=== PATIENT | male | born 1980 | race African-American/Black ===

== ENCOUNTER 2017-04-18 23:23 | Emergency (ER) | payer SELFPAY ==
[~2017-04-18] VITALS: Ht 175.3 cm; Wt 103.9 kg
--- NOTE | 2017-04-18 23:23 | NUR ---
PT AMBULATORY TO ER BED 08. 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 PT ALSO C/O N/V X TODAY. GOWNED AND PLACED ON MONITOR. STABLE VITALS. SALVADOR CUADRA.
--- NOTE | 2017-04-19 00:02 | NUR ---
DR MARR AT BEDSIDE FOR EVAL.
[2017-04-19] MEDS ORDERED: LORAZEPAM INJ 2 MG/ML VIAL IM ONE (00:30)
--- NOTE | 2017-04-19 00:30 | NUR ---
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
--- NOTE | 2017-04-19 00:30 | NUR ---
DIRECTOR TRANSPORTATION AT BEDSIDE FOR BLOOD DRAW.
[2017-04-19] MEDS ORDERED: LORAZEPAM 1 MG TABLET ONE (00:36)
[2017-04-19] MEDS ORDERED: LORAZEPAM INJ 2 MG/ML VIAL ONE (00:38)
[2017-04-19 00:41] LABS: BASOPHILS # (AUTO) 0.1 /CMM (0.0-0.2); BASOPHILS % (AUTO) 0.7 % (0.0-2.0); EOSINOPHILS # (AUTO) 0.1 /CMM (0.0-0.7); EOSINOPHILS % (AUTO) 0.6 % (0.0-6.0); HEMATOCRIT 38 % (39-51); HEMOGLOBIN 12.3 g/dL (13.5-17.5); LYMPHOCYTES # (AUTO) 1.8 /CMM (0.8-4.8); LYMPHOCYTES % (AUTO) 22.4 % (20.0-44.0); MEAN CORPUSCULAR HEMOGLOBIN 25 PG (26.0-33.0); MEAN CORPUSCULAR HGB CONC 32 g/dl (31.0-36.0); MEAN CORPUSCULAR VOLUME 79 fL (80-96); MONOCYTES # (AUTO) 0.7 /CMM (0.1-1.30); MONOCYTES % (AUTO) 8.5 % (2.0-12.0); NEUTROPHILS # (AUTO) 5.4 /CMM (1.8-8.9); NEUTROPHILS % (AUTO) 67.8 % (43.0-81.0); PLATELET COUNT (AUTO) 513 /CMM (150-450); RDW COEFFICIENT OF VARIATION 14.5 (11.5-15.0); RED BLOOD CELL COUNT(AUTO) 4.85 MIL/uL (4.5-6.0)
[2017-04-19 00:54] LABS: CALCIUM, SERUM 9.6 mg/dL (8.5-10.1); CARBON DIOXIDE 26 mmol/L (21-32); CHLORIDE 104 mmol/L (98-107); CREATININE 1.1 mg/dL (0.6-1.3); GLUCOSE 139 mg/dL (74-106); POTASSIUM 3.9 mmol/L (3.5-5.1); SODIUM SERUM 141 mmol/L (136-145); UREA NITROGEN, BLOOD 12 mg/dL (7-18)
[2017-04-19 00:58] LABS: D-DIMER 0.19 mg/L(FEU (0.17-0.50); INR 0.96 (0.87-1.13)
[2017-04-19 01:00] LABS: TROPONIN I < 0.017 ng/mL (0.00-0.056)
--- NOTE | 2017-04-19 01:19 | NUR ---
Patient discharged to home in stable condition. Written and verbal after care instructions given. Patient verbalizes understanding of instruction. ambulatory with a steady gait noted. pt [id number] no acute distress noted, resp even and unlabored.
[2017-04-19 01:20] VITALS: BP 127/63
== END 2017-04-19 01:21 | disposition home or self-care (01) ==
LOC: ER 23:27
DX: F41.9 Anxiety disorder, unspecified (principal); I10 Essential (primary) hypertension; I25.2 Old myocardial infarction; E11.9 Type 2 diabetes mellitus without complications
CPT/HCPCS: 36415; 71010; 80048; 84484; 85025; 85378; 85730; 93005; 96372; 99285; A4606 ×2; J2060; Z7610 ×2